=== PATIENT | male | born 2000 | race Caucasian/White ===

== ENCOUNTER 2018-08-17 16:59 | Emergency (ER) | payer OTHER ==
[~2018-08-17] VITALS: Ht 170.2 cm; Wt 75.9 kg
[2018-08-17] MEDS ORDERED: LIDOCAINE 2% MDV 20 ML VIAL SC ONE (17:30)
[2018-08-17] MEDS ORDERED: BACT800T5 PO (18:00)
[2018-08-17] MEDS ORDERED: NEOSPORIN OINT 0.9 GM PKT (FLOOR STOCK) TOP ONE (18:00)
[2018-08-17] MEDS ORDERED: BACTRIM 160MG/800MG DS TAB PO ONE (18:15)
[2018-08-17 18:27] VITALS: BP 130/70
== END 2018-08-17 18:31 | disposition home or self-care (01) ==
LOC: M ED 16:59
DX: S61.111A Laceration without foreign body of right thumb with damage to nail, initial encounter (principal); W26.8XXA Contact with other sharp object(s), not elsewhere classified, initial encounter; Y92.018 Other place in single-family (private) house as the place of occurrence of the external cause